=== PATIENT | male | born 1990 | race Caucasian/White ===

== ENCOUNTER 2019-08-23 22:10 | Emergency (ER) | payer MEDICAID ==
[2019-08-23 22:18] VITALS: BP 128/88
[2019-08-23] MEDS ORDERED: CLINDAMYCIN 150 MG CAPSULE PO STA (22:20)
--- NOTE | 2019-08-23 22:21 | ED Physician Documentation ---
History of Present Illness - Stated complaint Stated Complaint: RT SIDE TOOTH PX - Chief complaint Chief Complaint: General - History obtained from History obtained from: Patient - History of Present Illness Timing: Yesterday (He has a toothache since yesterday from a right maxillary canine. No fevers.) Review of Systems Constitutional: denies: Fever, Chills Cardiac: reports: Reviewed and negative Respiratory: reports: Reviewed and negative PD PAST MEDICAL HISTORY - Present Medications Home Medications: Ambulatory Orders Medication Instructions Recorded Confirmed Clindamycin HCl [Clindamycin 300MG 300 mg PO Q6H #28 capsule 08/23/19 CAP] - Allergies Allergies/Adverse Reactions: Allergies Allergy/AdvReac Type Severity Reaction Status Date / Time prednisone Allergy Anaphylaxis Verified 08/23/19 22:13 PD ED PE NORMAL - Vitals Vital signs reviewed: Yes - General General: Alert and oriented X 3, Other (He is here with a sober friend, he does seem intoxicated. He plans to go to detox tomorrow.) - HEENT HEENT: Other (Multiple bad teeth, no trismus or facial swelling, he is tender over the right mandibular canine with tenderness above the tooth 2 but no palpable abscess.) - Neck Neck: Supple, no meningeal sign, No bony TTP - Neuro Neuro: Alert and oriented X 3, Normal speech Results - Vitals Vitals: Vital Signs - 24 hr 08/23/19 22:13 Temperature 36.9 C Heart Rate 66 Respiratory 16 Rate Blood Pressure 128/88 H O2 Saturation 98 Oxygen O2 Source Room air Departure - Departure Disposition: 01 Home, Self Care Clinical Impression: Dental abscess Condition: Good Record reviewed to determine appropriate education?: Yes Instructions: ED Abscess Dental Prescriptions: Clindamycin HCl [Clindamycin 300MG CAP] 300 mg PO Q6H #28 capsule Comments: It is very important that you follow-up with a dentist. When it comes to dental problems like yours, the emergency department can only offer a short-term solution to your long-term problem. A couple of low cost options for dental care include: [facility] in [place], calls [phone] for an appointment Or [facility] in [place], call [phone] for an appointment.
== END 2019-08-23 22:27 | disposition home or self-care (01) ==
LOC: ED 22:10
DX: K04.7 Periapical abscess without sinus (principal)
CPT/HCPCS: 99282; 99283; A9270

== ENCOUNTER 2019-08-24 15:43 | Emergency (ER) | payer MEDICAID ==
[2019-08-24 15:57] VITALS: BP 130/95
--- NOTE | 2019-08-24 16:13 | ED Physician Documentation ---
History of Present Illness - Stated complaint Stated Complaint: ETOH - MEDICAL RELEASE FOR REHAB - Chief complaint Chief Complaint: General - History obtained from History obtained from: Patient (He is going to be going to an alcohol rehab opal ter today and needs a prescription for withdrawal symptoms. He is not withdrawing yet, in fact he is still intoxicated.) Review of Systems Constitutional: reports: Reviewed and negative Cardiac: reports: Reviewed and negative Respiratory: reports: Reviewed and negative PD PAST MEDICAL HISTORY - Past Surgical History Past Surgical History: No - Present Medications Home Medications: Ambulatory Orders Medication Instructions Recorded Confirmed Clindamycin HCl [Clindamycin 300MG 300 mg PO Q6H #28 capsule 08/23/19 CAP] Lorazepam [Ativan] 1 mg PO TID PRN #15 tablet 08/24/19 - Allergies Allergies/Adverse Reactions: Allergies Allergy/AdvReac Type Severity Reaction Status Date / Time prednisone Allergy Anaphylaxis Verified 08/24/19 15:57 - Social History Does the pt smoke?: No Smoking Status: Never smoker Does the pt drink ETOH?: No Does the pt have substance abuse?: Yes - Immunizations Immunizations are current?: Yes - POLST Patient has POLST: No PD ED PE NORMAL - Vitals Vital signs reviewed: Yes - General General: Alert and oriented X 3, No acute distress (Slow slurred speech but cooperative and pleasant) - HEENT HEENT: PERRL, EOMI - Cardiac Cardiac: RRR, No murmur - Respiratory Respiratory: No respiratory distress, Clear bilaterally - Abdomen Abdomen: Non tender - Neuro Neuro: Alert and oriented X 3, No motor deficit, No sensory deficit, Normal speech Results - Vitals Vitals: Vital Signs - 24 hr 08/24/19 15:51 Temperature 98.1 C H Heart Rate 86 Respiratory 14 Rate Blood Pressure 130/95 H O2 Saturation 96 Oxygen O2 Source Room air Departure - Departure Disposition: 01 Home, Self Care Condition: Good Record reviewed to determine appropriate education?: Yes Instructions: ED Withdrawal Alcohol Prescriptions: Lorazepam [Ativan] 1 mg PO TID PRN #15 tablet PRN Reason: Anxiety Comments: Go directly to the rehab center, return as needed if you worsen.
== END 2019-08-24 16:33 | disposition home or self-care (01) ==
LOC: ED 15:43
DX: F10.929 Alcohol use, unspecified with intoxication, unspecified (principal)
CPT/HCPCS: 99282